=== PATIENT | female | born 1980 | race Hispanic/Latino ===

== ENCOUNTER 2021-11-22 18:56 | Emergency (ER) | payer SELFPAY | END 2021-11-22 20:35 | disposition left against medical advice (07) | LOC: ERS 18:56 | DX: Z53.21 Procedure and treatment not carried out due to patient leaving prior to being seen by health care provider (principal) ==

== ENCOUNTER 2021-11-23 15:50 | Inpatient (IN) | payer SELFPAY ==
[2021-11-23] MEDS ORDERED: Ondansetron ODT 4 MG TAB SL PRN (22:15)
[2021-11-23] MEDS ORDERED: Ondansetron PF 4 MG/2 ML Vial IVP PRN ×2 (22:15→22:32)
[2021-11-23] MEDS ORDERED: Dextrose 5 %-0.45 % NaCl 1,000 ML IV SCH ×2 (22:15→22:35)
[2021-11-23] MEDS ORDERED: Morphine 4 MG/ML VIAL SLOW IVP PRN (23:19)
[2021-11-23 23:24] LABS: ALT (SGPT) 3509 U/L (8-55); AST (SGOT) 1358 U/L (5-34); Albumin 3.5 g/dL (3.5-5.0); Alkaline Phosphatase 297 U/L (40-110); Bilirubin, Direct 4.5 mg/dL (0.1-0.3); Bilirubin, Total 6.3 mg/dL (0.2-1.2); Protein, Total 6.9 g/dL (6.0-8.3)
[2021-11-24 03:45] VITALS: BMI 28.3
[2021-11-24 06:56] LABS: INR-International Normal Ratio 1.2; Prothrombin Time 15.5 sec (12.0-14.7)
[2021-11-24 06:57] LABS: PTT 35.4 sec (22.9-36.1)
[2021-11-24 07:01] LABS: Eosinophils 2 % (0-10); Hemoglobin 13.4 g/dL (12.0-16.0); Lymphocytes 34 % (21-51); MDiff Complete? YES; Mean Corpuscular HGB CONC 32.4 g/dL (32.0-36.0); Mean Corpuscular Hemoglobin 31.2 pg (27.0-31.0); Mean Corpuscular Volume 96.4 fL (78.0-98.0); Mean Platelet Volume 8.9 fL (7.4-10.4); Neutrophil 64 % (42-75); Platelet Count 145 thou/uL (130-400); Platelet Morphology Comment Appears Adequate; RBC Morphology Normal; White Blood Cell (WBC) Count 3.8 thou/uL (4.8-10.8)
[2021-11-24 07:10] LABS: ALT (SGPT) 3706 U/L (8-55); AST (SGOT) 1430 U/L (5-34); Albumin 3.7 g/dL (3.5-5.0); Alkaline Phosphatase 312 U/L (40-110); Anion Gap 12 mmol/L (10-20); BUN (Urea Nitrogen) 4 mg/dL (7.0-18.7); Bilirubin, Total 7.7 mg/dL (0.2-1.2); Calc. Creatinine Clearance 126 mL/min (70-130); Calcium 9.2 mg/dL (7.8-10.44); Carbon Dioxide 27 mmol/L (22-29); Chloride 103 mmol/L (98-107); Globulin 3.7 g/dL (2.4-3.5); Glucose 99 mg/dL (70-105); Potassium 3.5 mmol/L (3.5-5.1); Protein, Total 7.4 g/dL (6.0-8.3); Sodium 138 mmol/L (136-145)
[2021-11-24 07:27] LABS: Pregnancy Test - Urine (BHCG) Negative (Negative); Pregu Control Background? CLEAR/WHITE (CLR/WHITE); Pregu Control Bar Appear? YES (CONTROL BAR); Specific Gravity 1.008 (1.002-1.036)
[2021-11-24] MEDS ORDERED: D5 0.9% NS w/ 20 mEq KCl 1,000 ML IV SCH (07:45)
[2021-11-24] MEDS ORDERED: Enoxaparin Sodium 40 MG/0.4 ML SYRINGE SC SCH (09:00)
[2021-11-24] MEDS ORDERED: Sodium Chloride 0.9% 1,000 ML IV SCH (11:15)
[2021-11-24 13:06] LABS: HBSAg Index 0.38 S/CO (0-0.99); HIV (1/2) Antibody/Antigen Non-Reactive (NonReactive); HIV 1/2 INDEX 0.11 S/CO (<1.00); Hep A IgM AB Non-Reactive (NonReactive); Hep A IgM S/CO 0.44 S/CO (0-0.79); Hep B Surf Ag Non-Reactive S/CO (NonReactive); Hep C IgG Ab Non-Reactive (NonReactive); Hep C Index 0.12 S/CO (0-0.79); Hepatitis B Core IgM Abs Non-Reactive (NonReactive)
[2021-11-24] MEDS ORDERED: Electrolyte Replacement Protocol 1 EACH FS SCH (16:15)
[2021-11-24] MEDS ORDERED: Potassium Chloride 20 MEQ TAB PO SCH (16:15)
[2021-11-24] MEDS ORDERED: Electrolyte Replacement Protocol FS PRN (16:30)
[2021-11-24] MEDS: Sodium Chloride 0.9% 1,000 ML IV SCH (17:39)
[2021-11-25] MEDS: Sodium Chloride 0.9% 1,000 ML IV SCH ×2 (02:26→09:37)
[2021-11-25] MEDS ORDERED: Potassium Chloride 20 MEQ TAB PO SCH (07:00)
[2021-11-25 08:06] LABS: Hemoglobin 12.1 g/dL (12.0-16.0); Mean Corpuscular HGB CONC 33.6 g/dL (32.0-36.0); Mean Corpuscular Hemoglobin 32.2 pg (27.0-31.0); Mean Corpuscular Volume 96.1 fL (78.0-98.0); Mean Platelet Volume 9.2 fL (7.4-10.4); Platelet Count 143 thou/uL (130-400); RBC Distribution Width 12.1 % (11.5-14.5); Red Blood Cell (RBC) Count 3.74 mill/uL (4.20-5.40); White Blood Cell (WBC) Count 4.7 thou/uL (4.8-10.8)
[2021-11-25 08:16] LABS: Iron 169 ug/dL (50-170); Iron Binding Capacity, Total 279 mcg/dL (265-497)
[2021-11-25 08:18] LABS: ALT (SGPT) 3325 U/L (8-55); AST (SGOT) 1442 U/L (5-34); Albumin 3.3 g/dL (3.5-5.0); Alkaline Phosphatase 283 U/L (40-110); Anion Gap 14 mmol/L (10-20); BUN (Urea Nitrogen) 7 mg/dL (7.0-18.7); Bilirubin, Total 9.8 mg/dL (0.2-1.2); Calc. Creatinine Clearance 147 mL/min (70-130); Calcium 9.1 mg/dL (7.8-10.44); Carbon Dioxide 21 mmol/L (22-29); Chloride 107 mmol/L (98-107); Globulin 3.2 g/dL (2.4-3.5); Glucose 78 mg/dL (70-105); Magnesium 1.8 mg/dL (1.6-2.6); Potassium 3.9 mmol/L (3.5-5.1); Protein, Total 6.5 g/dL (6.0-8.3); Sodium 138 mmol/L (136-145)
[2021-11-25 09:20] LABS: Band 2 % (5-11); Lymphocytes 37 % (21-51); MDiff Complete? YES; Monocytes 17 % (0-10); Neutrophil 44 % (42-75); Platelet Morphology Comment Appears Adequate; Polychromasia SLIGHT = 2-3 cells (100X) (0-2/hpf)
[2021-11-25] MEDS ORDERED: Magnesium 2 GM/50 ML 2 GM in Premix Bag 1 BAG IVPB SCH (10:00)
[2021-11-25 12:47] LABS: ANA Symphony (Qualitative) Negative (Negative); ANA Symphony (Quantitative) 0.5 Ratio (< 0.7 Negative); EliA Vaculitis New Method **** NEW METHOD ****; Mitochondrial Ab 3.3 U/mL (<4 Negative); dsDNA IgG Antibody 2.5 IU/mL (<10 Negative)
[2021-11-25] MEDS: Mag-Al 1200 mg/1200 mg/30 ML UDCUP PO PRN (21:34)
[2021-11-26 11:25] LABS: Mean Corpuscular HGB CONC 31.8 g/dL (32.0-36.0); Mean Corpuscular Hemoglobin 30.7 pg (27.0-31.0); Mean Corpuscular Volume 96.3 fL (78.0-98.0); Platelet Count 139 thou/uL (130-400); RBC Distribution Width 12.2 % (11.5-14.5); Red Blood Cell (RBC) Count 3.91 mill/uL (4.20-5.40); White Blood Cell (WBC) Count 4.1 thou/uL (4.8-10.8)
[2021-11-26 11:39] LABS: INR-International Normal Ratio 1.3; Prothrombin Time 16.6 sec (12.0-14.7)
[2021-11-26 11:41] LABS: ALT (SGPT) 3320 U/L (8-55); AST (SGOT) 1506 U/L (5-34); Albumin 3.3 g/dL (3.5-5.0); Alkaline Phosphatase 302 U/L (40-110); Anion Gap 13 mmol/L (10-20); BUN (Urea Nitrogen) 7 mg/dL (7.0-18.7); Bilirubin, Total 13.1 mg/dL (0.2-1.2); Calc. Creatinine Clearance 121 mL/min (70-130); Calcium 8.9 mg/dL (7.8-10.44); Carbon Dioxide 23 mmol/L (22-29); Chloride 104 mmol/L (98-107); Globulin 3.4 g/dL (2.4-3.5); Glucose 122 mg/dL (70-105); Potassium 3.9 mmol/L (3.5-5.1); Protein, Total 6.7 g/dL (6.0-8.3); Sodium 136 mmol/L (136-145)
[2021-11-26 12:30] LABS: Band 2 % (5-11); Eosinophils 1 % (0-10); Lymphocytes 23 % (21-51); MDiff Complete? YES; Monocytes 11 % (0-10); Neutrophil 63 % (42-75); Platelet Morphology Comment Appears Adequate; RBC Morphology Normal
[2021-11-26 12:30] LABS: EBV VCA IgM <36.0 U/mL (0.0-35.9)
[2021-11-27] MEDS ORDERED: FLU VACC QS2021-22(6MOS UP)/PF 60 MCG/0.5 ML SYRINGE IM ONE (09:00)
[2021-11-27 10:29] LABS: INR-International Normal Ratio 1.2; Prothrombin Time 15.4 sec (12.0-14.7)
[2021-11-27 10:39] LABS: ALT (SGPT) 3530 U/L (8-55); AST (SGOT) 1694 U/L (5-34); Albumin 3.7 g/dL (3.5-5.0); Alkaline Phosphatase 336 U/L (40-110); Anion Gap 15 mmol/L (10-20); BUN (Urea Nitrogen) 10 mg/dL (7.0-18.7); Bilirubin, Total 15.5 mg/dL (0.2-1.2); Calc. Creatinine Clearance 119 mL/min (70-130); Calcium 9.1 mg/dL (7.8-10.44); Carbon Dioxide 22 mmol/L (22-29); Chloride 102 mmol/L (98-107); Globulin 3.9 g/dL (2.4-3.5); Glucose 136 mg/dL (70-105); Potassium 3.9 mmol/L (3.5-5.1); Protein, Total 7.6 g/dL (6.0-8.3); Sodium 135 mmol/L (136-145)
[2021-11-27] MEDS: Mag-Al 1200 mg/1200 mg/30 ML UDCUP PO PRN (22:04)
[2021-11-27] MEDS ORDERED: traMADol HCl 50 MG TAB PO SCH (22:30)
[2021-11-27 22:36] LABS: CMV IgG AB Greater than 10.00 U/mL (0.00-0.59)
[2021-11-28 08:07] LABS: ALT (SGPT) 3363 U/L (8-55); AST (SGOT) 1815 U/L (5-34); Albumin 3.5 g/dL (3.5-5.0); Alkaline Phosphatase 312 U/L (40-110); Anion Gap 12 mmol/L (10-20); BUN (Urea Nitrogen) 12 mg/dL (7.0-18.7); Bilirubin, Total 16.3 mg/dL (0.2-1.2); Calc. Creatinine Clearance 126 mL/min (70-130); Calcium 9.2 mg/dL (7.8-10.44); Carbon Dioxide 24 mmol/L (22-29); Chloride 102 mmol/L (98-107); Globulin 3.6 g/dL (2.4-3.5); Glucose 83 mg/dL (70-105); Protein, Total 7.1 g/dL (6.0-8.3); Sodium 134 mmol/L (136-145)
[2021-11-28 08:45] LABS: INR-International Normal Ratio 1.3; Prothrombin Time 16.5 sec (12.0-14.7)
[2021-11-28] MEDS: Mag-Al 1200 mg/1200 mg/30 ML UDCUP PO PRN (10:34)
[2021-11-28] MEDS ORDERED: methylPREDNISolone Sod Succ/PF 125 MG/2 ML VIAL IVP SCH (11:45)
[2021-11-28 16:13] LABS: Hepatitis E Virus IgG ABS Positive (Negative)
[2021-11-28 16:39] LABS: EliA Celiac New Method **** NEW METHOD ****; t-Transglutaminase (tTG) IgG 2.2 EliAU/mL (<7 Negative)
[2021-11-28 19:13] LABS: Smooth Muscle Total ABS 19 Units (0-19)
[2021-11-29] MEDS ORDERED: methylPREDNISolone Sod Succ/PF 125 MG/2 ML VIAL IVP SCH (09:00)
[2021-11-29 09:55] VITALS: BP 104/64; TEMP 97.8
[2021-11-29 10:20] LABS: #Lymphocytes 0.9 thou/uL (1.20-3.40); #Monocytes 0.3 thou/uL (0.11-0.59); #Neutrophils 8.4 thou/uL (1.40-6.50); %Basophils 0.4 % (0.0-1.0); %Lymphocytes 8.9 % (21.0-51.0); %Monocytes 2.8 % (0.0-10.0); %Neutrophils 87.9 % (42.0-75.0); Hemoglobin 13.1 g/dL (12.0-16.0); Mean Corpuscular HGB CONC 32.6 g/dL (32.0-36.0); Mean Corpuscular Hemoglobin 31.2 pg (27.0-31.0); Mean Corpuscular Volume 95.5 fL (78.0-98.0); Mean Platelet Volume 9.1 fL (7.4-10.4); Platelet Count 216 thou/uL (130-400); RBC Distribution Width 12.7 % (11.5-14.5); Red Blood Cell (RBC) Count 4.21 mill/uL (4.20-5.40); White Blood Cell (WBC) Count 9.6 thou/uL (4.8-10.8)
[2021-11-29 10:28] LABS: INR-International Normal Ratio 1.3
[2021-11-29 10:41] LABS: ALT (SGPT) 3081 U/L (8-55); AST (SGOT) 1110 U/L (5-34); Albumin 3.7 g/dL (3.5-5.0); Alkaline Phosphatase 311 U/L (40-110); Anion Gap 14 mmol/L (10-20); BUN (Urea Nitrogen) 14 mg/dL (7.0-18.7); Bilirubin, Total 15.5 mg/dL (0.2-1.2); Calc. Creatinine Clearance 126 mL/min (70-130); Calcium 9.7 mg/dL (7.8-10.44); Carbon Dioxide 23 mmol/L (22-29); Chloride 101 mmol/L (98-107); Globulin 3.9 g/dL (2.4-3.5); Glucose 178 mg/dL (70-105); Potassium 4.2 mmol/L (3.5-5.1); Protein, Total 7.6 g/dL (6.0-8.3); Sodium 134 mmol/L (136-145)
[2021-11-30 12:37] LABS: Alpha-1-Antitrypsin 147 mg/dL (100-188)
== END 2021-11-29 14:57 | disposition home or self-care (01) | DRG 443 ==
LOC: T4-B 15:50
PROVIDERS: ADMIT Internal Medicine; ATTEND Family Medicine
DX: B17.2 Acute hepatitis E (principal); Z20.822 Contact with and (suspected) exposure to COVID-19; E87.6 Hypokalemia; D72.819 Decreased white blood cell count, unspecified; K21.9 Gastro-esophageal reflux disease without esophagitis; R12 Heartburn; Z86.16 Personal history of COVID-19; Z90.49 Acquired absence of other specified parts of digestive tract
CPT/HCPCS: 36415; 76705; 80053; 80074; 81025; 82103; 82104; 82390; 82728; 83516; 83540; 83550; 83690; 83735; 85007; 85025; 85027; 85610; 85730; 86038; 86225; 86644; 86645; 86664; 86665; 86790; 87389; 87529; J1650; J2405; J2930; J3475; J3480; J7042; J7050